=== PATIENT | male | born 1965 | race Caucasian/White ===

== ENCOUNTER 2021-07-17 21:23 | Emergency (ER) | payer SELFPAY ==
[~2021-07-17] VITALS: Ht 175.3 cm; Wt 81.6 kg
[2021-07-17 21:31] VITALS: BP 145/85
== END 2021-07-18 00:48 | disposition left against medical advice (07) ==
LOC: MED 21:23
DX: Z53.21 Procedure and treatment not carried out due to patient leaving prior to being seen by health care provider (principal)